=== PATIENT | female | born 1960 | race Caucasian/White ===

== ENCOUNTER 2018-06-04 17:49 | Emergency (ER) | payer OTHER ==
[~2018-06-04] VITALS: Ht 165.1 cm; Wt 56.8 kg
[2018-06-04 18:02] VITALS: BP 96/61
== END 2018-06-04 23:39 | disposition left against medical advice (07) ==
LOC: ER 17:49
DX: M79.674 Pain in right toe(s) (principal); M10.9 Gout, unspecified; Z53.21 Procedure and treatment not carried out due to patient leaving prior to being seen by health care provider